=== PATIENT | male | born 1980 | race Two or more races ===

== ENCOUNTER 2021-08-13 14:21 | Inpatient (IN) | payer OTHER ==
[2021-08-13] MEDS ORDERED: LOPERAMIDE HCL 2 MG CAPSULE PO PRN (15:46)
[2021-08-13] MEDS ORDERED: MAGNESIUM HYDROX 2400MG/30ML ORAL SUSPENSION 30 ML CUP PO PRN (15:46)
[2021-08-13] MEDS ORDERED: MAGNESIUM CITRATE 300 ML BOTTLE PO PRN (15:46)
[2021-08-13] MEDS ORDERED: MENTHOL/PHENOL 1 EACH UD MM PRN (15:46)
[2021-08-13] MEDS ORDERED: BISMUTH SUBSALICYLATE 524 MG/30 ML PO PRN (15:46)
[2021-08-13] MEDS ORDERED: ACETAMINOPHEN 325 MG TABLET (FP) PO PRN ×2 (15:46)
[2021-08-13] MEDS ORDERED: MAG HYDROX/AL HYDROX/SIMETH 30 ML UNIT-DOSE CUP PO PRN (15:46)
[2021-08-13] MEDS ORDERED: IBUPROFEN 400 MG TABLET (FP) PO PRN (15:46)
[2021-08-13] MEDS ORDERED: METHOCARBAMOL 500 MG TABLET PO PRN (15:46)
[2021-08-13] MEDS ORDERED: ONDANSETRON *ODT* 4 MG TABLET SL PRN (15:46)
[2021-08-13 19:12] VITALS: BMI 28.7
[2021-08-13] MEDS: hydrOXYzine PAMOATE 25 MG CAPSULE (FP) PO SCH ×2 (20:55→22:56)
[2021-08-13] MEDS: NICOTINE 10 MG CARTRIDGE (INHALER) IH PRN (20:56)
[2021-08-13] MEDS ORDERED: DEXTROSE 50%-WATER - 25 GM/50 ML VIAL IVPUSH ONE (21:02)
[2021-08-13] MEDS ORDERED: MELATONIN 5 MG TABLETS PO SCH (22:00)
[2021-08-13] MEDS ORDERED: THIAMINE HCL 100 MG TABLET (FP) PO SCH (22:00)
[2021-08-13] MEDS: INSULIN SLIDING SCALE (NOVOLOG) 1 VIAL SQ SCH (22:02)
[2021-08-14] MEDS: hydrOXYzine PAMOATE 25 MG CAPSULE (FP) PO SCH ×2 (06:36→10:10)
[2021-08-14] MEDS: INSULIN SLIDING SCALE (NOVOLOG) 1 VIAL SQ SCH ×2 (06:37→11:11)
[2021-08-14] MEDS: NICOTINE 10 MG CARTRIDGE (INHALER) IH PRN ×2 (07:39→11:47)
[2021-08-14] MEDS ORDERED: PRENATAL VITAMINS W/ FOLIC ACID TABLET (FP) PO SCH (10:00)
[2021-08-14] MEDS ORDERED: LISINOPRIL 5 MG TABLET PO SCH (10:00)
[2021-08-14] MEDS ORDERED: FENOFIBRIC ACID 135 MG CAP PO SCH (10:00)
[2021-08-14] MEDS ORDERED: PANTOPRAZOLE 40 MG TABLET PO SCH (10:00)
[2021-08-14] MEDS ORDERED: SERTRALINE HCL 50 MG TABLET (FP) PO SCH (10:45)
[2021-08-14 11:12] LABS: HEMOGLOBIN 15.3 GM/dL (11.7-16.9); MEAN PLT VOLUME 9.2 fl (7.5-11.1); WHITE BLOOD COUNT 3.7 K/mm3 (4.0-10.0)
[2021-08-14 11:15] LABS: HEMATOCRIT 44.7 % (35.4-49); MCH 31.1 pg (25.7-33.7); MCHC 34.1 g/dl (32.0-35.9); MEAN CELL VOLUME 91.2 fl (80-96); PLATELET COUNT 281 10^3/uL (134-434); RDW 13.9 % (11.9-15.9)
[2021-08-14 12:49] VITALS: BP 132/79; PULSE 88; TEMP 98.1
[2021-08-14 12:53] LABS: BILIRUBIN,TOTAL 0.5 mg/dL (0.2-1); BLOOD UREA NITROGEN 14.5 mg/dL (7-18); CALCIUM 9.9 mg/dL (8.5-10.1); CREATININE 0.6 mg/dL (0.55-1.3); TOT PROT 6.9 g/dl (6.4-8.2)
[2021-08-14 18:50] LABS: HIV INTERPRETATION NEGATIVE (NEGATIVE)
[2021-08-14] MEDS ORDERED: risperiDONE 2 MG TABLET PO SCH (22:00)
[2021-08-14] MEDS ORDERED: traZODone HCL 100 MG TABLET (FP) PO SCH (22:00)
== END 2021-08-14 13:36 | disposition other institution (70) | DRG 775 ==
LOC: YASAS 14:21 → Y6N 18:42 → UNDOADMIN 18:42 → Y6N 18:43
PROVIDERS: ADMIT Allergy & Immunology; ATTEND Allergy & Immunology
PROC: HZ2ZZZZ Detoxification Services for Substance Abuse Treatment (ICD-10-PCS; principal; 2021-08-13)
DX: F10.230 Alcohol dependence with withdrawal, uncomplicated (principal); F13.230 Sedative, hypnotic or anxiolytic dependence with withdrawal, uncomplicated; F17.210 Nicotine dependence, cigarettes, uncomplicated; F25.9 Schizoaffective disorder, unspecified; F10.282 Alcohol dependence with alcohol-induced sleep disorder; F90.9 Attention-deficit hyperactivity disorder, unspecified type; E78.5 Hyperlipidemia, unspecified; I10 Essential (primary) hypertension; M17.12 Unilateral primary osteoarthritis, left knee; E11.9 Type 2 diabetes mellitus without complications; Z79.84 Long term (current) use of oral hypoglycemic drugs; Z91.410 Personal history of adult physical and sexual abuse
CPT/HCPCS: 36415; 71046-TC-FY; 80053; 82962; 85027; 86780; 87389; 93005; 93010; C9803; U0003; U0005

== ENCOUNTER 2021-08-14 13:55 | Inpatient (IN) | payer OTHER ==
[~2021-08-14 13:55] MED LIST: ACETAMINOPHEN 325 MG TABLET (FP) PO PRN; IBUPROFEN 400 MG TABLET (FP) PO PRN; INSULIN SLIDING SCALE (NOVOLOG) 1 VIAL SQ PRN; LOPERAMIDE HCL 2 MG CAPSULE PO PRN; MAG HYDROX/AL HYDROX/SIMETH 30 ML UNIT-DOSE CUP PO PRN; MAGNESIUM CITRATE 300 ML BOTTLE PO PRN; MAGNESIUM HYDROX 2400MG/30ML ORAL SUSPENSION 30 ML CUP PO PRN; P-EPHED 60MG/TRIPROLIDI 2.5MG TABLET PO PRN; guaiFENesin 200 MG/10 ML 10 ML UNIT-DOSE CUPS PO PRN
[2021-08-14] MEDS: NICOTINE 10 MG CARTRIDGE (INHALER) IH PRN ×2 (16:05→19:49)
[2021-08-14] MEDS ORDERED: INSULIN SLIDING SCALE (NOVOLOG) 1 VIAL SQ SCH (16:30)
[2021-08-14] MEDS: MELATONIN 5 MG TABLETS PO SCH (21:37)
[2021-08-14] MEDS: THIAMINE HCL 100 MG TABLET (FP) PO SCH (21:37)
[2021-08-14] MEDS: traZODone HCL 100 MG TABLET (FP) PO SCH (21:37)
[2021-08-14] MEDS: hydrOXYzine PAMOATE 25 MG CAPSULE (FP) PO PRN (21:37)
[2021-08-14] MEDS: risperiDONE 2 MG TABLET PO SCH (21:38)
[2021-08-15] MEDS: NICOTINE 10 MG CARTRIDGE (INHALER) IH PRN ×5 (06:18→21:35)
[2021-08-15] MEDS: SERTRALINE HCL 50 MG TABLET (FP) PO SCH (10:11)
[2021-08-15] MEDS: LISINOPRIL 5 MG TABLET PO SCH (10:11)
[2021-08-15] MEDS: NICOTINE 7 MG/24 HOURS TOPICAL PATCH TD SCH (10:11)
[2021-08-15] MEDS: PRENATAL VITAMINS W/ FOLIC ACID TABLET (FP) PO SCH (10:11)
[2021-08-15] MEDS: PANTOPRAZOLE 40 MG TABLET PO SCH (10:12)
[2021-08-15] MEDS: hydrOXYzine PAMOATE 25 MG CAPSULE (FP) PO PRN ×2 (10:12→21:34)
[2021-08-15] MEDS: GLIMEPIRIDE 1 MG TABLET PO SCH (12:54)
[2021-08-15] MEDS: traZODone HCL 100 MG TABLET (FP) PO SCH (21:34)
[2021-08-15] MEDS: risperiDONE 2 MG TABLET PO SCH (21:34)
[2021-08-15] MEDS: MELATONIN 5 MG TABLETS PO SCH (21:34)
[2021-08-15] MEDS: THIAMINE HCL 100 MG TABLET (FP) PO SCH (21:34)
[2021-08-16] MEDS: NICOTINE 10 MG CARTRIDGE (INHALER) IH PRN ×5 (06:58→21:43)
[2021-08-16] MEDS: PRENATAL VITAMINS W/ FOLIC ACID TABLET (FP) PO SCH (10:11)
[2021-08-16] MEDS: PANTOPRAZOLE 40 MG TABLET PO SCH (10:11)
[2021-08-16] MEDS: SERTRALINE HCL 50 MG TABLET (FP) PO SCH (10:11)
[2021-08-16] MEDS: NICOTINE 7 MG/24 HOURS TOPICAL PATCH TD SCH (10:11)
[2021-08-16] MEDS: LISINOPRIL 5 MG TABLET PO SCH (10:11)
[2021-08-16] MEDS: GLIMEPIRIDE 1 MG TABLET PO SCH (12:43)
[2021-08-16] MEDS: risperiDONE 2 MG TABLET PO SCH (21:42)
[2021-08-16] MEDS: traZODone HCL 100 MG TABLET (FP) PO SCH (21:42)
[2021-08-16] MEDS: THIAMINE HCL 100 MG TABLET (FP) PO SCH (21:42)
[2021-08-16] MEDS: MELATONIN 5 MG TABLETS PO SCH (21:42)
[2021-08-17] MEDS: NICOTINE 10 MG CARTRIDGE (INHALER) IH PRN ×4 (06:45→16:55)
[2021-08-17] MEDS: PRENATAL VITAMINS W/ FOLIC ACID TABLET (FP) PO SCH (09:52)
[2021-08-17] MEDS: NICOTINE 7 MG/24 HOURS TOPICAL PATCH TD SCH (09:52)
[2021-08-17] MEDS: PANTOPRAZOLE 40 MG TABLET PO SCH (09:53)
[2021-08-17] MEDS: LISINOPRIL 5 MG TABLET PO SCH (09:53)
[2021-08-17] MEDS: SERTRALINE HCL 50 MG TABLET (FP) PO SCH (09:53)
[2021-08-17] MEDS: GLIMEPIRIDE 1 MG TABLET PO SCH (12:00)
[2021-08-17] MEDS: risperiDONE 2 MG TABLET PO SCH (21:29)
[2021-08-17] MEDS: MELATONIN 5 MG TABLETS PO SCH (21:29)
[2021-08-17] MEDS: THIAMINE HCL 100 MG TABLET (FP) PO SCH (21:29)
[2021-08-17] MEDS: traZODone HCL 100 MG TABLET (FP) PO SCH (21:29)
[2021-08-18] MEDS: NICOTINE 10 MG CARTRIDGE (INHALER) IH PRN ×5 (07:26→21:23)
[2021-08-18] MEDS: LISINOPRIL 5 MG TABLET PO SCH (10:09)
[2021-08-18] MEDS: PANTOPRAZOLE 40 MG TABLET PO SCH (10:09)
[2021-08-18] MEDS: PRENATAL VITAMINS W/ FOLIC ACID TABLET (FP) PO SCH (10:09)
[2021-08-18] MEDS: SERTRALINE HCL 50 MG TABLET (FP) PO SCH (10:09)
[2021-08-18] MEDS: NICOTINE 7 MG/24 HOURS TOPICAL PATCH TD SCH (10:09)
[2021-08-18] MEDS: GLIMEPIRIDE 1 MG TABLET PO SCH (11:51)
[2021-08-18] MEDS: traZODone HCL 100 MG TABLET (FP) PO SCH (21:22)
[2021-08-18] MEDS: THIAMINE HCL 100 MG TABLET (FP) PO SCH (21:22)
[2021-08-18] MEDS: risperiDONE 2 MG TABLET PO SCH (21:22)
[2021-08-18] MEDS: MELATONIN 5 MG TABLETS PO SCH (21:22)
[2021-08-19] MEDS: PRENATAL VITAMINS W/ FOLIC ACID TABLET (FP) PO SCH (10:12)
[2021-08-19] MEDS: SERTRALINE HCL 50 MG TABLET (FP) PO SCH (10:12)
[2021-08-19] MEDS: PANTOPRAZOLE 40 MG TABLET PO SCH (10:12)
[2021-08-19] MEDS: NICOTINE 7 MG/24 HOURS TOPICAL PATCH TD SCH (10:13)
[2021-08-19] MEDS: LISINOPRIL 5 MG TABLET PO SCH (10:13)
[2021-08-19] MEDS: NICOTINE 10 MG CARTRIDGE (INHALER) IH PRN ×4 (10:14→21:07)
[2021-08-19] MEDS: GLIMEPIRIDE 1 MG TABLET PO SCH (12:15)
[2021-08-19] MEDS: hydrOXYzine PAMOATE 25 MG CAPSULE (FP) PO PRN (21:48)
[2021-08-19] MEDS: MELATONIN 5 MG TABLETS PO SCH (21:48)
[2021-08-19] MEDS: traZODone HCL 100 MG TABLET (FP) PO SCH (21:48)
[2021-08-19] MEDS: THIAMINE HCL 100 MG TABLET (FP) PO SCH (21:48)
[2021-08-19] MEDS: risperiDONE 2 MG TABLET PO SCH (21:48)
[2021-08-20] MEDS: NICOTINE 10 MG CARTRIDGE (INHALER) IH PRN ×5 (06:01→20:31)
[2021-08-20] MEDS: LISINOPRIL 5 MG TABLET PO SCH (09:07)
[2021-08-20] MEDS: NICOTINE 7 MG/24 HOURS TOPICAL PATCH TD SCH (09:07)
[2021-08-20] MEDS: PANTOPRAZOLE 40 MG TABLET PO SCH (09:07)
[2021-08-20] MEDS: PRENATAL VITAMINS W/ FOLIC ACID TABLET (FP) PO SCH (09:07)
[2021-08-20] MEDS: SERTRALINE HCL 50 MG TABLET (FP) PO SCH (09:08)
[2021-08-20] MEDS: GLIMEPIRIDE 1 MG TABLET PO SCH (12:09)
[2021-08-20] MEDS: MELATONIN 5 MG TABLETS PO SCH (22:14)
[2021-08-20] MEDS: THIAMINE HCL 100 MG TABLET (FP) PO SCH (22:14)
[2021-08-20] MEDS: risperiDONE 2 MG TABLET PO SCH (22:14)
[2021-08-20] MEDS: hydrOXYzine PAMOATE 25 MG CAPSULE (FP) PO PRN (22:14)
[2021-08-20] MEDS: traZODone HCL 100 MG TABLET (FP) PO SCH (22:14)
[2021-08-21] MEDS: PANTOPRAZOLE 40 MG TABLET PO SCH (09:49)
[2021-08-21] MEDS: PRENATAL VITAMINS W/ FOLIC ACID TABLET (FP) PO SCH (09:49)
[2021-08-21] MEDS: NICOTINE 7 MG/24 HOURS TOPICAL PATCH TD SCH (09:49)
[2021-08-21] MEDS: NICOTINE 10 MG CARTRIDGE (INHALER) IH PRN ×5 (09:49→23:27)
[2021-08-21] MEDS: LISINOPRIL 5 MG TABLET PO SCH (09:49)
[2021-08-21] MEDS: SERTRALINE HCL 50 MG TABLET (FP) PO SCH (09:49)
[2021-08-21] MEDS: GLIMEPIRIDE 1 MG TABLET PO SCH (11:23)
[2021-08-21] MEDS: traZODone HCL 100 MG TABLET (FP) PO SCH (21:15)
[2021-08-21] MEDS: hydrOXYzine PAMOATE 25 MG CAPSULE (FP) PO PRN (21:15)
[2021-08-21] MEDS: risperiDONE 2 MG TABLET PO SCH (21:15)
[2021-08-21] MEDS: MELATONIN 5 MG TABLETS PO SCH (21:15)
[2021-08-21] MEDS: THIAMINE HCL 100 MG TABLET (FP) PO SCH (21:15)
[2021-08-22] MEDS: PANTOPRAZOLE 40 MG TABLET PO SCH (09:44)
[2021-08-22] MEDS: NICOTINE 10 MG CARTRIDGE (INHALER) IH PRN ×4 (09:44→19:45)
[2021-08-22] MEDS: NICOTINE 7 MG/24 HOURS TOPICAL PATCH TD SCH (09:44)
[2021-08-22] MEDS: PRENATAL VITAMINS W/ FOLIC ACID TABLET (FP) PO SCH (09:44)
[2021-08-22] MEDS: LISINOPRIL 5 MG TABLET PO SCH (09:44)
[2021-08-22] MEDS: SERTRALINE HCL 50 MG TABLET (FP) PO SCH (09:44)
[2021-08-22] MEDS: GLIMEPIRIDE 1 MG TABLET PO SCH (11:59)
[2021-08-22] MEDS: risperiDONE 2 MG TABLET PO SCH (21:13)
[2021-08-22] MEDS: hydrOXYzine PAMOATE 25 MG CAPSULE (FP) PO PRN (21:13)
[2021-08-22] MEDS: MELATONIN 5 MG TABLETS PO SCH (21:13)
[2021-08-22] MEDS: THIAMINE HCL 100 MG TABLET (FP) PO SCH (21:13)
[2021-08-22] MEDS: traZODone HCL 100 MG TABLET (FP) PO SCH (21:13)
[2021-08-23] MEDS: NICOTINE 10 MG CARTRIDGE (INHALER) IH PRN ×3 (08:06→19:58)
[2021-08-23] MEDS: PRENATAL VITAMINS W/ FOLIC ACID TABLET (FP) PO SCH (10:04)
[2021-08-23] MEDS: NICOTINE 7 MG/24 HOURS TOPICAL PATCH TD SCH (10:04)
[2021-08-23] MEDS: LISINOPRIL 5 MG TABLET PO SCH (10:04)
[2021-08-23] MEDS: SERTRALINE HCL 50 MG TABLET (FP) PO SCH (10:05)
[2021-08-23] MEDS: PANTOPRAZOLE 40 MG TABLET PO SCH (10:06)
[2021-08-23] MEDS: GLIMEPIRIDE 1 MG TABLET PO SCH (11:56)
[2021-08-23] MEDS: traZODone HCL 100 MG TABLET (FP) PO SCH (21:13)
[2021-08-23] MEDS: MELATONIN 5 MG TABLETS PO SCH (21:13)
[2021-08-23] MEDS: hydrOXYzine PAMOATE 25 MG CAPSULE (FP) PO PRN (21:13)
[2021-08-23] MEDS: THIAMINE HCL 100 MG TABLET (FP) PO SCH (21:13)
[2021-08-23] MEDS: risperiDONE 2 MG TABLET PO SCH (21:13)
[2021-08-24] MEDS: NICOTINE 10 MG CARTRIDGE (INHALER) IH PRN ×5 (07:05→21:16)
[2021-08-24] MEDS: PRENATAL VITAMINS W/ FOLIC ACID TABLET (FP) PO SCH (09:23)
[2021-08-24] MEDS: NICOTINE 7 MG/24 HOURS TOPICAL PATCH TD SCH (09:24)
[2021-08-24] MEDS: SERTRALINE HCL 50 MG TABLET (FP) PO SCH (09:24)
[2021-08-24] MEDS: PANTOPRAZOLE 40 MG TABLET PO SCH (09:24)
[2021-08-24] MEDS: LISINOPRIL 5 MG TABLET PO SCH (09:24)
[2021-08-24] MEDS: GLIMEPIRIDE 1 MG TABLET PO SCH (11:15)
[2021-08-24] MEDS: THIAMINE HCL 100 MG TABLET (FP) PO SCH (21:15)
[2021-08-24] MEDS: traZODone HCL 100 MG TABLET (FP) PO SCH (21:15)
[2021-08-24] MEDS: MELATONIN 5 MG TABLETS PO SCH (21:15)
[2021-08-24] MEDS: risperiDONE 2 MG TABLET PO SCH (21:16)
[2021-08-25] MEDS: NICOTINE 10 MG CARTRIDGE (INHALER) IH PRN ×5 (06:37→22:29)
[2021-08-25] MEDS: hydrOXYzine PAMOATE 25 MG CAPSULE (FP) PO PRN ×2 (06:37→22:29)
[2021-08-25] MEDS: PRENATAL VITAMINS W/ FOLIC ACID TABLET (FP) PO SCH (09:57)
[2021-08-25] MEDS: LISINOPRIL 5 MG TABLET PO SCH (09:58)
[2021-08-25] MEDS: SERTRALINE HCL 50 MG TABLET (FP) PO SCH (09:58)
[2021-08-25] MEDS: PANTOPRAZOLE 40 MG TABLET PO SCH (09:58)
[2021-08-25] MEDS: NICOTINE 7 MG/24 HOURS TOPICAL PATCH TD SCH (09:59)
[2021-08-25] MEDS: GLIMEPIRIDE 1 MG TABLET PO SCH (11:21)
[2021-08-25] MEDS: traZODone HCL 100 MG TABLET (FP) PO SCH (22:29)
[2021-08-25] MEDS: THIAMINE HCL 100 MG TABLET (FP) PO SCH (22:29)
[2021-08-25] MEDS: risperiDONE 2 MG TABLET PO SCH (22:29)
[2021-08-25] MEDS: MELATONIN 5 MG TABLETS PO SCH (22:30)
[2021-08-26] MEDS: NICOTINE 7 MG/24 HOURS TOPICAL PATCH TD SCH (09:45)
[2021-08-26] MEDS: SERTRALINE HCL 50 MG TABLET (FP) PO SCH (09:45)
[2021-08-26] MEDS: PRENATAL VITAMINS W/ FOLIC ACID TABLET (FP) PO SCH (09:45)
[2021-08-26] MEDS: PANTOPRAZOLE 40 MG TABLET PO SCH (09:46)
[2021-08-26] MEDS: LISINOPRIL 5 MG TABLET PO SCH (09:47)
[2021-08-26] MEDS: NICOTINE 10 MG CARTRIDGE (INHALER) IH PRN ×5 (09:48→22:53)
[2021-08-26] MEDS: GLIMEPIRIDE 1 MG TABLET PO SCH (12:19)
[2021-08-26] MEDS: THIAMINE HCL 100 MG TABLET (FP) PO SCH (21:53)
[2021-08-26] MEDS: risperiDONE 2 MG TABLET PO SCH (21:53)
[2021-08-26] MEDS: MELATONIN 5 MG TABLETS PO SCH (21:53)
[2021-08-26] MEDS: hydrOXYzine PAMOATE 25 MG CAPSULE (FP) PO PRN (21:53)
[2021-08-26] MEDS: traZODone HCL 100 MG TABLET (FP) PO SCH (21:53)
[2021-08-27] MEDS: NICOTINE 10 MG CARTRIDGE (INHALER) IH PRN ×5 (06:11→21:42)
[2021-08-27] MEDS: SERTRALINE HCL 50 MG TABLET (FP) PO SCH (09:52)
[2021-08-27] MEDS: PRENATAL VITAMINS W/ FOLIC ACID TABLET (FP) PO SCH (09:52)
[2021-08-27] MEDS: LISINOPRIL 5 MG TABLET PO SCH (09:52)
[2021-08-27] MEDS: PANTOPRAZOLE 40 MG TABLET PO SCH (09:52)
[2021-08-27] MEDS: NICOTINE 7 MG/24 HOURS TOPICAL PATCH TD SCH (09:52)
[2021-08-27] MEDS: GLIMEPIRIDE 1 MG TABLET PO SCH (12:07)
[2021-08-27] MEDS: MELATONIN 5 MG TABLETS PO SCH (21:41)
[2021-08-27] MEDS: risperiDONE 2 MG TABLET PO SCH (21:41)
[2021-08-27] MEDS: THIAMINE HCL 100 MG TABLET (FP) PO SCH (21:41)
[2021-08-27] MEDS: traZODone HCL 100 MG TABLET (FP) PO SCH (21:41)
[2021-08-28] MEDS: NICOTINE 10 MG CARTRIDGE (INHALER) IH PRN ×5 (06:20→20:01)
[2021-08-28] MEDS: PANTOPRAZOLE 40 MG TABLET PO SCH (10:04)
[2021-08-28] MEDS: SERTRALINE HCL 50 MG TABLET (FP) PO SCH (10:04)
[2021-08-28] MEDS: LISINOPRIL 5 MG TABLET PO SCH (10:04)
[2021-08-28] MEDS: PRENATAL VITAMINS W/ FOLIC ACID TABLET (FP) PO SCH (10:04)
[2021-08-28] MEDS: NICOTINE 7 MG/24 HOURS TOPICAL PATCH TD SCH (10:05)
[2021-08-28] MEDS: GLIMEPIRIDE 1 MG TABLET PO SCH (12:35)
[2021-08-28] MEDS: MELATONIN 5 MG TABLETS PO SCH (21:46)
[2021-08-28] MEDS: risperiDONE 2 MG TABLET PO SCH (21:46)
[2021-08-28] MEDS: traZODone HCL 100 MG TABLET (FP) PO SCH (21:46)
[2021-08-28] MEDS: THIAMINE HCL 100 MG TABLET (FP) PO SCH (21:46)
[2021-08-29] MEDS: NICOTINE 10 MG CARTRIDGE (INHALER) IH PRN ×4 (06:09→21:45)
[2021-08-29] MEDS: NICOTINE 7 MG/24 HOURS TOPICAL PATCH TD SCH (10:27)
[2021-08-29] MEDS: PRENATAL VITAMINS W/ FOLIC ACID TABLET (FP) PO SCH (10:27)
[2021-08-29] MEDS: PANTOPRAZOLE 40 MG TABLET PO SCH (10:27)
[2021-08-29] MEDS: LISINOPRIL 5 MG TABLET PO SCH (10:27)
[2021-08-29] MEDS: SERTRALINE HCL 50 MG TABLET (FP) PO SCH (10:27)
[2021-08-29] MEDS: GLIMEPIRIDE 1 MG TABLET PO SCH (12:32)
[2021-08-29] MEDS ORDERED: NALTREXONE HCL 50 MG TABLET PO SCH (13:15)
[2021-08-29] MEDS ORDERED: NALTREXONE HCL 50 MG TABLET PO ONE (14:40)
[2021-08-29] MEDS: traZODone HCL 100 MG TABLET (FP) PO SCH (21:44)
[2021-08-29] MEDS: risperiDONE 2 MG TABLET PO SCH (21:44)
[2021-08-29] MEDS: THIAMINE HCL 100 MG TABLET (FP) PO SCH (21:44)
[2021-08-29] MEDS: MELATONIN 5 MG TABLETS PO SCH (21:44)
[2021-08-30] MEDS: NICOTINE 10 MG CARTRIDGE (INHALER) IH PRN ×5 (06:38→21:53)
[2021-08-30] MEDS: PANTOPRAZOLE 40 MG TABLET PO SCH (10:10)
[2021-08-30] MEDS: NICOTINE 7 MG/24 HOURS TOPICAL PATCH TD SCH (10:10)
[2021-08-30] MEDS: SERTRALINE HCL 50 MG TABLET (FP) PO SCH (10:10)
[2021-08-30] MEDS: hydrOXYzine PAMOATE 25 MG CAPSULE (FP) PO PRN (10:10)
[2021-08-30] MEDS: PRENATAL VITAMINS W/ FOLIC ACID TABLET (FP) PO SCH (10:10)
[2021-08-30] MEDS: LISINOPRIL 5 MG TABLET PO SCH (10:11)
[2021-08-30] MEDS: NALTREXONE HCL 50 MG TABLET PO SCH (10:45)
[2021-08-30] MEDS: GLIMEPIRIDE 1 MG TABLET PO SCH (12:01)
[2021-08-30] MEDS: THIAMINE HCL 100 MG TABLET (FP) PO SCH (21:52)
[2021-08-30] MEDS: MELATONIN 5 MG TABLETS PO SCH (21:52)
[2021-08-30] MEDS: risperiDONE 2 MG TABLET PO SCH (21:52)
[2021-08-30] MEDS: traZODone HCL 100 MG TABLET (FP) PO SCH (21:52)
[2021-08-31] MEDS: NICOTINE 10 MG CARTRIDGE (INHALER) IH PRN ×3 (10:00→21:36)
[2021-08-31] MEDS: SERTRALINE HCL 50 MG TABLET (FP) PO SCH (10:00)
[2021-08-31] MEDS: PRENATAL VITAMINS W/ FOLIC ACID TABLET (FP) PO SCH (10:00)
[2021-08-31] MEDS: LISINOPRIL 5 MG TABLET PO SCH (10:00)
[2021-08-31] MEDS: NICOTINE 7 MG/24 HOURS TOPICAL PATCH TD SCH (10:00)
[2021-08-31] MEDS: NALTREXONE HCL 50 MG TABLET PO SCH (10:01)
[2021-08-31] MEDS: PANTOPRAZOLE 40 MG TABLET PO SCH (10:01)
[2021-08-31] MEDS: hydrOXYzine PAMOATE 25 MG CAPSULE (FP) PO PRN ×3 (10:02→21:36)
[2021-08-31] MEDS: GLIMEPIRIDE 1 MG TABLET PO SCH (11:58)
[2021-08-31] MEDS: traZODone HCL 100 MG TABLET (FP) PO SCH (21:36)
[2021-08-31] MEDS: risperiDONE 2 MG TABLET PO SCH (21:36)
[2021-08-31] MEDS: THIAMINE HCL 100 MG TABLET (FP) PO SCH (21:36)
[2021-08-31] MEDS: MELATONIN 5 MG TABLETS PO SCH (21:36)
[2021-09-01] MEDS: LISINOPRIL 5 MG TABLET PO SCH (10:34)
[2021-09-01] MEDS: PRENATAL VITAMINS W/ FOLIC ACID TABLET (FP) PO SCH (10:34)
[2021-09-01] MEDS: SERTRALINE HCL 50 MG TABLET (FP) PO SCH (10:34)
[2021-09-01] MEDS: PANTOPRAZOLE 40 MG TABLET PO SCH (10:35)
[2021-09-01] MEDS: NALTREXONE HCL 50 MG TABLET PO SCH (10:35)
[2021-09-01] MEDS: NICOTINE 7 MG/24 HOURS TOPICAL PATCH TD SCH (10:35)
[2021-09-01] MEDS: NICOTINE 10 MG CARTRIDGE (INHALER) IH PRN ×4 (10:36→21:34)
[2021-09-01] MEDS: GLIMEPIRIDE 1 MG TABLET PO SCH (12:36)
[2021-09-01] MEDS: hydrOXYzine PAMOATE 25 MG CAPSULE (FP) PO PRN (21:33)
[2021-09-01] MEDS: risperiDONE 2 MG TABLET PO SCH (21:33)
[2021-09-01] MEDS: traZODone HCL 100 MG TABLET (FP) PO SCH (21:33)
[2021-09-01] MEDS: THIAMINE HCL 100 MG TABLET (FP) PO SCH (21:33)
[2021-09-01] MEDS: MELATONIN 5 MG TABLETS PO SCH (21:33)
[2021-09-02] MEDS: NICOTINE 10 MG CARTRIDGE (INHALER) IH PRN ×5 (06:34→21:33)
[2021-09-02] MEDS: PANTOPRAZOLE 40 MG TABLET PO SCH (10:09)
[2021-09-02] MEDS: SERTRALINE HCL 50 MG TABLET (FP) PO SCH (10:09)
[2021-09-02] MEDS: LISINOPRIL 5 MG TABLET PO SCH (10:09)
[2021-09-02] MEDS: PRENATAL VITAMINS W/ FOLIC ACID TABLET (FP) PO SCH (10:09)
[2021-09-02] MEDS: NICOTINE 7 MG/24 HOURS TOPICAL PATCH TD SCH (10:10)
[2021-09-02] MEDS: NALTREXONE HCL 50 MG TABLET PO SCH (10:11)
[2021-09-02] MEDS: GLIMEPIRIDE 1 MG TABLET PO SCH (13:06)
[2021-09-02] MEDS: traZODone HCL 100 MG TABLET (FP) PO SCH (21:34)
[2021-09-02] MEDS: risperiDONE 2 MG TABLET PO SCH (21:34)
[2021-09-02] MEDS: THIAMINE HCL 100 MG TABLET (FP) PO SCH (21:34)
[2021-09-02] MEDS: MELATONIN 5 MG TABLETS PO SCH (21:34)
[2021-09-03] MEDS: hydrOXYzine PAMOATE 25 MG CAPSULE (FP) PO PRN ×2 (06:37→21:42)
[2021-09-03] MEDS: NICOTINE 10 MG CARTRIDGE (INHALER) IH PRN ×4 (06:37→20:36)
[2021-09-03] MEDS: PANTOPRAZOLE 40 MG TABLET PO SCH (09:56)
[2021-09-03] MEDS: NICOTINE 7 MG/24 HOURS TOPICAL PATCH TD SCH (09:56)
[2021-09-03] MEDS: SERTRALINE HCL 50 MG TABLET (FP) PO SCH (09:56)
[2021-09-03] MEDS: PRENATAL VITAMINS W/ FOLIC ACID TABLET (FP) PO SCH (09:56)
[2021-09-03] MEDS: LISINOPRIL 5 MG TABLET PO SCH (10:07)
[2021-09-03] MEDS: NALTREXONE HCL 50 MG TABLET PO SCH (10:33)
[2021-09-03] MEDS: GLIMEPIRIDE 1 MG TABLET PO SCH (12:13)
[2021-09-03] MEDS: traZODone HCL 100 MG TABLET (FP) PO SCH (21:42)
[2021-09-03] MEDS: THIAMINE HCL 100 MG TABLET (FP) PO SCH (21:42)
[2021-09-03] MEDS: risperiDONE 2 MG TABLET PO SCH (21:42)
[2021-09-03] MEDS: MELATONIN 5 MG TABLETS PO SCH (21:42)
[2021-09-04] MEDS: PRENATAL VITAMINS W/ FOLIC ACID TABLET (FP) PO SCH (10:10)
[2021-09-04] MEDS: NICOTINE 7 MG/24 HOURS TOPICAL PATCH TD SCH (10:10)
[2021-09-04] MEDS: NALTREXONE HCL 50 MG TABLET PO SCH (10:11)
[2021-09-04] MEDS: LISINOPRIL 5 MG TABLET PO SCH (10:11)
[2021-09-04] MEDS: PANTOPRAZOLE 40 MG TABLET PO SCH (10:11)
[2021-09-04] MEDS: hydrOXYzine PAMOATE 25 MG CAPSULE (FP) PO PRN ×2 (10:11→21:33)
[2021-09-04] MEDS: SERTRALINE HCL 50 MG TABLET (FP) PO SCH (10:11)
[2021-09-04] MEDS: NICOTINE 10 MG CARTRIDGE (INHALER) IH PRN ×4 (10:12→21:32)
[2021-09-04] MEDS: GLIMEPIRIDE 1 MG TABLET PO SCH (12:19)
[2021-09-04] MEDS: traZODone HCL 100 MG TABLET (FP) PO SCH (21:33)
[2021-09-04] MEDS: risperiDONE 2 MG TABLET PO SCH (21:33)
[2021-09-04] MEDS: MELATONIN 5 MG TABLETS PO SCH (21:33)
[2021-09-04] MEDS: THIAMINE HCL 100 MG TABLET (FP) PO SCH (21:33)
[2021-09-05] MEDS: NICOTINE 10 MG CARTRIDGE (INHALER) IH PRN ×5 (07:00→20:53)
[2021-09-05] MEDS: NICOTINE 7 MG/24 HOURS TOPICAL PATCH TD SCH (10:07)
[2021-09-05] MEDS: PRENATAL VITAMINS W/ FOLIC ACID TABLET (FP) PO SCH (10:07)
[2021-09-05] MEDS: LISINOPRIL 5 MG TABLET PO SCH (10:08)
[2021-09-05] MEDS: PANTOPRAZOLE 40 MG TABLET PO SCH (10:08)
[2021-09-05] MEDS: hydrOXYzine PAMOATE 25 MG CAPSULE (FP) PO PRN ×2 (10:08→21:29)
[2021-09-05] MEDS: SERTRALINE HCL 50 MG TABLET (FP) PO SCH (10:08)
[2021-09-05] MEDS: NALTREXONE HCL 50 MG TABLET PO SCH (10:38)
[2021-09-05] MEDS: GLIMEPIRIDE 1 MG TABLET PO SCH (11:54)
[2021-09-05] MEDS: THIAMINE HCL 100 MG TABLET (FP) PO SCH (21:29)
[2021-09-05] MEDS: traZODone HCL 100 MG TABLET (FP) PO SCH (21:29)
[2021-09-05] MEDS: MELATONIN 5 MG TABLETS PO SCH (21:29)
[2021-09-05] MEDS: risperiDONE 2 MG TABLET PO SCH (21:30)
[2021-09-06] MEDS: NICOTINE 10 MG CARTRIDGE (INHALER) IH PRN ×5 (06:42→21:31)
[2021-09-06] MEDS: NICOTINE 7 MG/24 HOURS TOPICAL PATCH TD SCH (10:21)
[2021-09-06] MEDS: PRENATAL VITAMINS W/ FOLIC ACID TABLET (FP) PO SCH (10:21)
[2021-09-06] MEDS: SERTRALINE HCL 50 MG TABLET (FP) PO SCH (10:23)
[2021-09-06] MEDS: PANTOPRAZOLE 40 MG TABLET PO SCH (10:23)
[2021-09-06] MEDS: LISINOPRIL 5 MG TABLET PO SCH (10:23)
[2021-09-06] MEDS: NALTREXONE HCL 50 MG TABLET PO SCH (10:23)
[2021-09-06] MEDS: GLIMEPIRIDE 1 MG TABLET PO SCH (12:27)
[2021-09-06] MEDS: traZODone HCL 100 MG TABLET (FP) PO SCH (21:31)
[2021-09-06] MEDS: THIAMINE HCL 100 MG TABLET (FP) PO SCH (21:31)
[2021-09-06] MEDS: risperiDONE 2 MG TABLET PO SCH (21:31)
[2021-09-06] MEDS: MELATONIN 5 MG TABLETS PO SCH (21:31)
[2021-09-07] MEDS: NICOTINE 10 MG CARTRIDGE (INHALER) IH PRN ×5 (07:09→21:45)
[2021-09-07] MEDS: PANTOPRAZOLE 40 MG TABLET PO SCH (10:46)
[2021-09-07] MEDS: PRENATAL VITAMINS W/ FOLIC ACID TABLET (FP) PO SCH (10:46)
[2021-09-07] MEDS: LISINOPRIL 5 MG TABLET PO SCH (10:46)
[2021-09-07] MEDS: SERTRALINE HCL 50 MG TABLET (FP) PO SCH (10:46)
[2021-09-07] MEDS: NICOTINE 7 MG/24 HOURS TOPICAL PATCH TD SCH (10:47)
[2021-09-07] MEDS: NALTREXONE HCL 50 MG TABLET PO SCH (12:20)
[2021-09-07] MEDS: GLIMEPIRIDE 1 MG TABLET PO SCH (12:21)
[2021-09-07] MEDS: THIAMINE HCL 100 MG TABLET (FP) PO SCH (21:46)
[2021-09-07] MEDS: hydrOXYzine PAMOATE 25 MG CAPSULE (FP) PO PRN (21:46)
[2021-09-07] MEDS: risperiDONE 2 MG TABLET PO SCH (21:46)
[2021-09-07] MEDS: MELATONIN 5 MG TABLETS PO SCH (21:46)
[2021-09-07] MEDS: traZODone HCL 100 MG TABLET (FP) PO SCH (21:48)
[2021-09-08] MEDS: NICOTINE 10 MG CARTRIDGE (INHALER) IH PRN ×5 (06:58→21:39)
[2021-09-08] MEDS: hydrOXYzine PAMOATE 25 MG CAPSULE (FP) PO PRN (06:58)
[2021-09-08] MEDS: PRENATAL VITAMINS W/ FOLIC ACID TABLET (FP) PO SCH (10:19)
[2021-09-08] MEDS: NALTREXONE HCL 50 MG TABLET PO SCH (10:19)
[2021-09-08] MEDS: LISINOPRIL 5 MG TABLET PO SCH (10:19)
[2021-09-08] MEDS: NICOTINE 7 MG/24 HOURS TOPICAL PATCH TD SCH (10:19)
[2021-09-08] MEDS: SERTRALINE HCL 50 MG TABLET (FP) PO SCH (10:19)
[2021-09-08] MEDS: PANTOPRAZOLE 40 MG TABLET PO SCH (10:19)
[2021-09-08] MEDS: GLIMEPIRIDE 1 MG TABLET PO SCH (13:39)
[2021-09-08] MEDS: risperiDONE 2 MG TABLET PO SCH (21:40)
[2021-09-08] MEDS: THIAMINE HCL 100 MG TABLET (FP) PO SCH (21:40)
[2021-09-08] MEDS: MELATONIN 5 MG TABLETS PO SCH (21:40)
[2021-09-08] MEDS: traZODone HCL 100 MG TABLET (FP) PO SCH (21:40)
[2021-09-09] MEDS: NICOTINE 10 MG CARTRIDGE (INHALER) IH PRN ×4 (06:21→18:08)
[2021-09-09] MEDS: PRENATAL VITAMINS W/ FOLIC ACID TABLET (FP) PO SCH (10:20)
[2021-09-09] MEDS: PANTOPRAZOLE 40 MG TABLET PO SCH (10:20)
[2021-09-09] MEDS: SERTRALINE HCL 50 MG TABLET (FP) PO SCH (10:20)
[2021-09-09] MEDS: NALTREXONE HCL 50 MG TABLET PO SCH (10:20)
[2021-09-09] MEDS: LISINOPRIL 5 MG TABLET PO SCH (10:20)
[2021-09-09] MEDS: NICOTINE 7 MG/24 HOURS TOPICAL PATCH TD SCH (10:21)
[2021-09-09] MEDS: GLIMEPIRIDE 1 MG TABLET PO SCH (11:13)
[2021-09-09] MEDS: traZODone HCL 100 MG TABLET (FP) PO SCH (21:42)
[2021-09-09] MEDS: risperiDONE 2 MG TABLET PO SCH (21:42)
[2021-09-09] MEDS: THIAMINE HCL 100 MG TABLET (FP) PO SCH (21:42)
[2021-09-09] MEDS: MELATONIN 5 MG TABLETS PO SCH (21:42)
[2021-09-10] MEDS: NICOTINE 10 MG CARTRIDGE (INHALER) IH PRN ×4 (06:58→18:17)
[2021-09-10] MEDS: SERTRALINE HCL 50 MG TABLET (FP) PO SCH (10:35)
[2021-09-10] MEDS: PRENATAL VITAMINS W/ FOLIC ACID TABLET (FP) PO SCH (10:35)
[2021-09-10] MEDS: LISINOPRIL 5 MG TABLET PO SCH (10:35)
[2021-09-10] MEDS: NALTREXONE HCL 50 MG TABLET PO SCH (10:36)
[2021-09-10] MEDS: PANTOPRAZOLE 40 MG TABLET PO SCH (10:36)
[2021-09-10] MEDS: NICOTINE 7 MG/24 HOURS TOPICAL PATCH TD SCH (10:36)
[2021-09-10] MEDS: GLIMEPIRIDE 1 MG TABLET PO SCH (11:33)
[2021-09-10] MEDS: THIAMINE HCL 100 MG TABLET (FP) PO SCH (21:29)
[2021-09-10] MEDS: traZODone HCL 100 MG TABLET (FP) PO SCH (21:29)
[2021-09-10] MEDS: risperiDONE 2 MG TABLET PO SCH (21:29)
[2021-09-10] MEDS: hydrOXYzine PAMOATE 25 MG CAPSULE (FP) PO PRN (21:29)
[2021-09-10] MEDS: MELATONIN 5 MG TABLETS PO SCH (21:29)
[2021-09-11] MEDS: NICOTINE 10 MG CARTRIDGE (INHALER) IH PRN (06:52)
[2021-09-11 07:22] VITALS: TEMP 97.6
[2021-09-11] MEDS: SERTRALINE HCL 50 MG TABLET (FP) PO SCH (09:25)
[2021-09-11] MEDS: PRENATAL VITAMINS W/ FOLIC ACID TABLET (FP) PO SCH (09:25)
[2021-09-11] MEDS: NALTREXONE HCL 50 MG TABLET PO SCH (09:25)
[2021-09-11] MEDS: PANTOPRAZOLE 40 MG TABLET PO SCH (09:25)
[2021-09-11] MEDS: NICOTINE 7 MG/24 HOURS TOPICAL PATCH TD SCH (09:25)
[2021-09-11] MEDS: LISINOPRIL 5 MG TABLET PO SCH (09:25)
[2021-09-11 09:51] VITALS: BP 121/70; PULSE 83
== END 2021-09-11 09:28 | disposition home or self-care (01) | DRG 772 ==
LOC: YASAS 13:55 → Y5N 13:56
PROVIDERS: ADMIT Allergy & Immunology; ATTEND Allergy & Immunology
PROC: HZ42ZZZ Group Counseling for Substance Abuse Treatment, Cognitive-Behavioral (ICD-10-PCS; principal; 2021-09-11)
DX: F10.20 Alcohol dependence, uncomplicated (principal); F17.210 Nicotine dependence, cigarettes, uncomplicated; I10 Essential (primary) hypertension; E11.9 Type 2 diabetes mellitus without complications; M17.12 Unilateral primary osteoarthritis, left knee; Z96.642 Presence of left artificial hip joint; Z79.4 Long term (current) use of insulin
CPT/HCPCS: 82962; C9803; U0003; U0005